=== PATIENT | female | born 1950 | race Caucasian/White ===

== ENCOUNTER → 2016-10-25 | Outpatient (CLI) | payer BC, MEDICARE | END | disposition short-term general hospital (02) | LOC: CLONCO 07:55 | DX: D72.829 Elevated white blood cell count, unspecified (principal); D69.6 Thrombocytopenia, unspecified ==

== ENCOUNTER → 2016-11-03 | Outpatient (CLI) | payer BC, MEDICARE | END | disposition short-term general hospital (02) | LOC: CLCARD 08:41 | DX: I48.2 Chronic atrial fibrillation (principal); I44.2 Atrioventricular block, complete; I50.42 Chronic combined systolic (congestive) and diastolic (congestive) heart failure; N18.6 End stage renal disease ==

== ENCOUNTER → 2016-11-07 | Outpatient (CLI) | payer BC, MEDICARE | END | disposition short-term general hospital (02) | LOC: CLONCO 08:40 → LAB 10:05 → EDSTATUS 16:14 → CLONCO 16:15 | DX: D72.819 Decreased white blood cell count, unspecified (principal); D69.6 Thrombocytopenia, unspecified ==

== ENCOUNTER → 2016-11-22 | Outpatient (CLI) | payer BC, MEDICARE | END | disposition short-term general hospital (02) | LOC: CLONCO 08:13 | DX: D69.6 Thrombocytopenia, unspecified (principal); D72.819 Decreased white blood cell count, unspecified; D61.818 Other pancytopenia; R74.0 Nonspecific elevation of levels of transaminase and lactic acid dehydrogenase [LDH] ==